=== PATIENT | male | born 1965 | race Caucasian/White ===

== ENCOUNTER 2020-05-23 14:10 | Emergency (ER) | payer OTHER ==
[~2020-05-23] VITALS: Ht 162.5 cm; Wt 90.7 kg
== END 2020-05-23 15:03 | disposition home or self-care (01) ==
LOC: ED 14:10
DX: S61.210A Laceration without foreign body of right index finger without damage to nail, initial encounter (principal); X58.XXXA Exposure to other specified factors, initial encounter; Y93.89 Activity, other specified; Y92.89 Other specified places as the place of occurrence of the external cause; Y99.8 Other external cause status